=== PATIENT | male | born 1990 | race Two or more races ===

== ENCOUNTER 2018-05-13 09:09 | Emergency (ER) | payer SELFPAY ==
[2018-05-13 09:25] VITALS: BP 129/83; PULSE 75; TEMP 98.3; BMI 29.9
[2018-05-13] MEDS ORDERED: DIPHTH,PERTUSS(ACELL),TET 0.5 ML DISP.SYRIN IM ONE ×2 (10:55→10:58)
[2018-05-13] MEDS ORDERED: ACETAMINOPHEN 325 MG TABLET (FP) PO ONE (10:55)
[2018-05-13] MEDS ORDERED: ACETAMINOPHEN 325 MG TABLET (FP) ONE (10:57)
--- NOTE | 2018-05-13 11:02 | PDOC ---
History of Present Illness - General Chief Complaint: Injury Stated Complaint: RT HAND INJURY Time Seen by Provider: 05/13/18 10:06 History Source: Patient Exam Limitations: No Limitations - History of Present Illness Initial Comments: 05/13/18 10:59 Patient is a 27-year-old male, no past medical history, who presents to the ER for hand pain 2 days. 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 Patient states that the pain started later that day. He notes that his hand started swelling. He tried taking Motrin at home with little relief of his symptoms. He states it hurts to move his hand however he does have full range of motion. Denies fevers, chills, numbness and tingling to the extremities, weakness to the extremities, vomiting and diarrhea. Past History - Travel Traveled outside of the country in the last 30 days: No Close contact w/someone who was outside of country & ill: No - Past Medical History Allergies/Adverse Reactions: Allergies Allergy/AdvReac Type Severity Reaction Status Date / Time No Known Allergies Allergy Verified 05/13/18 09:22 Home Medications: Ambulatory Orders Cephalexin Monohydrate [Keflex -] 500 mg PO BID #14 capsule 05/13/18 Ibuprofen 600 mg PO Q6H #30 tablet 05/13/18 Sulfamethoxazole/Trimethoprim [Bactrim Ds -] 1 tab PO BID #14 tablet 05/13/18 traMADol HCL [Ultram -] 50 mg PO BID #10 tablet MDD 2 05/13/18 COPD: No - Suicide/Smoking/Psychosocial Hx Smoking Status: No Smoking History: Never smoked Have you smoked in the past 12 months: No Number of Cigarettes Smoked Daily: 0 Information on smoking cessation initiated: No Hx Alcohol Use: No Drug/Substance Use Hx: No Review of Systems - Review of Systems Able to Perform ROS?: Yes Comments:: 05/13/18 10:56 CONSTITUTIONAL: Absent: fever, chills, diaphoresis, generalized weakness, malaise, loss of appetite HEENT: Absent: rhinorrhea, nasal congestion, throat pain, throat swelling, difficulty swallowing, mouth swelling, ear pain, eye pain, visual Changes CARDIOVASCULAR: Absent: chest pain, loss of consciousness, palpitations, irregular heart rate, peripheral edema RESPIRATORY: Absent: cough, shortness of breath, dyspnea with exertion, orthopnea, wheezing, stridor, hemoptysis GASTROINTESTINAL: Absent: abdominal pain, abdominal distension, nausea, vomiting, diarrhea, constipation, melena, hematochezia GENITOURINARY: Absent: dysuria, frequency, urgency, hesitancy, hematuria, flank pain, genital pain MUSCULOSKELETAL: Present: L hand pain/swelling Absent: myalgia, arthralgia, joint swelling SKIN: Absent: rash, itching, pallor HEMATOLOGIC/IMMUNOLOGIC: Absent: easy bleeding, easy bruising, lymphadenopathy, frequent infections ENDOCRINE: Absent: unexplained weight gain, unexplained weight loss, heat intolerance, cold intolerance NEUROLOGIC: Absent: headache, focal weakness or paresthesias, dizziness, unsteady gait, seizure, mental status changes, bladder or bowel incontinence PSYCHIATRIC: Absent: anxiety, depression, suicidal or homicidal ideation, hallucinations. Is the patient limited Ecuadorean proficient: No *Physical Exam - Vital Signs Last Vital Signs Temp Pulse Resp BP Pulse Ox 98.3 F 75 16 129/83 100 05/13/18 09:22 05/13/18 09:22 05/13/18 09:22 05/13/18 09:22 05/13/18 09:22 - Physical Exam Comments: 05/13/18 10:56 GENERAL: Well developed, well nourished. Awake and alert. No acute distress. MUSCULOSKELETAL Pt is able to make a fist with his L hand. Full ROM. Normal range of motion at all joints. No bony deformities or tenderness. No CVA tenderness. EXTREMITIES: Swelling to the R hand with warmth. Possible cellulitits. No cyanosis. No clubbing. No edema. No calf tenderness. SKIN: Pin prick to center of L palm where needle stuck his hand. Warm and dry. Normal capillary refill. No rashes. No jaundice. NEUROLOGICAL: Alert, awake, appropriate. Cranial nerves 2-12 intact. No deficits to light touch and temperature in face, upper extremities and lower extremities. No motor deficits in the in face, upper extremities and lower extremities. Normoreflexic in the upper and lower extremities. Normal speech. Toes are down- going bilaterally. Gait is normal without ataxia. PSYCHIATRIC: Cooperative. Good eye contact. Appropriate mood and affect. 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 No foreign body in the wound. Tetanus updated today as patient does not remember his last tetanus shot. Patient does have full range of motion of the left hand and is able to make a fist. Minimal swelling noted to the palm of the hand but it is not circumferential. We'll start Keflex and Bactrim Patient referred to hand specialty for further follow-up. Explained to the patient that it was very important he followed up with hand surgery. Discharge home I discussed the physical exam findings, ancillary test results and final diagnoses with the patient. I answered all of the patient's questions. The patient was satisfied with the care received and felt comfortable with the discharge plan and treatment plan. The Patient agrees to follow up with the primary care physician/specialist within 24-72 hours. Return precautions were given. *DC/Admit/Observation/Transfer Diagnosis at time of Disposition: Cellulitis Qualifiers: Site of cellulitis: extremity Site of cellulitis of extremity: upper extremity Laterality: left Qualified Code(s): L03.114 - Cellulitis of left upper limb - Discharge Dispostion Disposition: HOME Condition at time of disposition: Stable Decision to Admit order: No - Prescriptions Prescriptions: Cephalexin Monohydrate [Keflex -] 500 mg PO BID #14 capsule Ibuprofen 600 mg PO Q6H #30 tablet Sulfamethoxazole/Trimethoprim [Bactrim Ds -] 1 tab PO BID #14 tablet traMADol HCL [Ultram -] 50 mg PO BID #10 tablet MDD 2 - Referrals Referrals: Riaz Potter MD [Staff Physician] - - Patient Instructions Printed Discharge Instructions: DI for Cellulitis -- Adult Additional Instructions: You have cellulitis. This is a skin infection. Please take the Bactrim and Keflex twice a day for one week. Please take all the antibiotics even if you feel better. You may use warm water soaks to the area. Please do this approximately 4-5 times a day. Please avoid shaving the skin around the area of redness. You may take Tylenol or Motrin as needed for pain. Please follow up with the hand doctor in 24-48 hours Return to the emergency department if you have worsening redness, fevers, increasing pain, or have any changes in your symptoms. - Post Discharge Activity Forms/Work/School Notes: Back to Work
== END 2018-05-13 12:24 | disposition home or self-care (01) ==
LOC: JERFT 09:09
PROC: 3E0234Z Introduction of Serum, Toxoid and Vaccine into Muscle, Percutaneous Approach (ICD-10-PCS; principal; 2018-05-13)
DX: S69.82XA Other specified injuries of left wrist, hand and finger(s), initial encounter (principal); L03.114 Cellulitis of left upper limb; W20.8XXA Other cause of strike by thrown, projected or falling object, initial encounter; Y93.H3 Activity, building and construction; Y92.69 Other specified industrial and construction area as the place of occurrence of the external cause; Y99.0 Civilian activity done for income or pay
CPT/HCPCS: 73130-TC-LT-FY; 90715; 99281-25

== ENCOUNTER 2020-07-26 13:43 | Emergency (ER) | payer OTHER ==
[2020-07-26 14:04] VITALS: BP 109/64; PULSE 64; TEMP 98.6; BMI 26.6
== END 2020-07-26 15:08 | disposition home or self-care (01) ==
LOC: FER 13:43
DX: S61.432A Puncture wound without foreign body of left hand, initial encounter (principal)
CPT/HCPCS: 73130-TC-LT-FY; 99284-25